=== PATIENT | male | born 1985 | race Caucasian/White ===

== ENCOUNTER 2017-05-29 11:27 | Emergency (ER) | payer MEDICAID ==
[2017-05-29 11:40] VITALS: TEMP 97.5
--- NOTE | 2017-05-29 14:48 | EDPHY ---
H & P Smoking Status: Current some day smoker Time Seen by Provider: 05/29/17 14:07 HPI/ROS: CHIEF COMPLAINT: Vomiting, diarrhea HISTORY OF PRESENT ILLNESS: 31-year-old male presents emergency department with multiple episodes of vomiting and diarrhea that began earlier this morning. No fevers or chills. No blood in his stool. No recent travel. No chest pain or difficulty breathing. No neck or back pain. Patient also tells me that he has a history of bipolar and has been prescribed lithium. He last had his levels checked a few months ago. He has not had any lithium toxicity in the past. He states that he used to live over sees in [place] and [place] and has been having difficulty the getting a job. He has felt depressed. He is not suicidal homicidal. He does have a psychiatrist as well as a therapist. REVIEW OF SYSTEMS: Constitutional: No fever, no chills. Eyes: No double or blurry vision. ENT: No sore throat. Respiratory: No cough, no shortness of breath. Cardiac: No chest pain. Gastrointestinal: Vomiting, diarrhea as above. No abdominal pain. Genitourinary: No dysuria. Musculoskeletal: No neck or back pain. Skin: No rashes. Neurological: No headache. (Lou Donovan) Past Medical/Surgical History: Bipolar (Lou Donovan) Social History: Single, unemployed (Lou Donovan) Physical Exam: General Appearance: Alert, no distress. Vital signs are stable. Eyes: Pupils equal and round. Extraocular motions are all intact. ENT: Mouth: Mucous membranes moist. Respiratory: No wheezing, rhonchi, or rales, lungs are clear to auscultation. Cardiovascular: Regular rate and rhythm. Gastrointestinal: Abdomen is soft and nontender, no masses, no rebound or guarding, bowel sounds normal. Neurological: Alert and oriented x 3, cranial nerves II through XII grossly intact Skin: Warm and dry, no rashes. Musculoskeletal: Nontender to palpate along the cervical, thoracic or lumbar spine. Neck is supple. Extremities: Full range of motion and no peripheral edema. Psychiatric: Patient is oriented X 3, there is no agitation. (Lou Donovan) Constitutional: Initial Vital Signs Temperature (C) 36.4 C 05/29/17 11:37 Heart Rate 76 05/29/17 11:37 Respiratory Rate 16 05/29/17 11:37 Blood Pressure 115/72 05/29/17 11:37 O2 Sat (%) 98 05/29/17 11:37 O2 Delivery Mode Room Air Allergies/Adverse Reactions: No Known Allergies Allergy (Verified 05/29/17 11:36) Home Medications: Medication Instructions Recorded Mercer Carbonate [Mercer 300 mg PO BID #60 cap 05/08/16 Carbonate Cap 300 mg (*)] Medical Decision Making ED Course/Re-evaluation: 31-year-old male presents to the emergency department with multiple episodes of vomiting and diarrhea which have now resolved. Patient has a normal physical examination. The patient has a history of bipolar and has been taking lithium as prescribed. He has not seen his psychiatrist or therapist in a few weeks. I recommended close follow-up with them. I offered mental health evaluation, however the patient declined. He states that he does feel depressed and not motivated, however he does not feel suicidal or homicidal. Denies auditory or visual hallucinations. He does have a primary care provider and has been the following up with her regarding his depression. It is been recommended that he follow up with the psychiatrist. (Lou Donovan) I did not see this patient while he was in the emergency department. However his care was discussed with the PA while the patient was in the department. I agree with treatment plan and management. IM the secondary supervising physician (Kip Saenz) Differential Diagnosis: Including but not limited to gastroenteritis, infectious diarrhea, anemia (Lou Donovan) Departure - Departure Disposition: Home, Routine, Self-Care Clinical Impression: Gastroenteritis Depression Qualifiers: Depression Type: unspecified Qualified Code(s): F32.9 - Major depressive disorder, single episode, unspecified Condition: Good Instructions: Depression (ED), Gastroenteritis (ED) Additional Instructions: Clear liquids and then advance diet as tolerated. Referrals: Jenny Stoner MD [Primary Care Provider] - As per Instructions [facility],. [Clinic] - As per Instructions
[2017-05-29 14:54] VITALS: BP 132/76; PULSE 73; RESP 18; O2SAT 95
== END 2017-05-29 14:53 | disposition home or self-care (01) ==
DX: K52.9 Noninfective gastroenteritis and colitis, unspecified (principal); F32.9 Major depressive disorder, single episode, unspecified

== ENCOUNTER 2018-04-10 00:33 | Emergency (ER) | payer SELFPAY ==
--- NOTE | 2018-04-10 01:05 | EDPHY ---
H & P Stated Complaint: feels "blunted" Time Seen by Provider: 04/10/18 01:05 HPI/ROS: HPI CHIEF COMPLAINT: "I feel blunted" HISTORY OF PRESENT ILLNESS: 32-year-old male, he has a history of bipolar disorder, does not take any medications, also he is homeless living out of his car, presents emergency room stating he feels blunted. He reports to me that he has felt more isolated, and feels fatigued. He has not been ill. He denies suicidal thoughts or homicidal thoughts he denies wanting to hurt himself or anybody else. He states that he has been living in his car more often recently and is somewhat tired of doing this as he states he always has to be alert and kept alert looking for threats. He denies visual or auditory hallucinations. Patient's main complaint is that he feels fatigued. He went to get his vital signs checked here. Additionally he was requesting basic blood work. He has no focal psychiatric complaint. He denies SI HI or feeling psychotic. He does endorse fatigue. He denies feeling really depressed. Past Medical History: Bipolar disorder, not on any medication Past Surgical History: No recent surgery Social History: smokes marijuana occasionally, denies other illicit drugs or alcohol. Family History: Noncontributory ROS REVIEW OF SYSTEMS: 10 Systems were reviewed and negative with the exception of the elements mentioned in the history of present illness. Exam Constitutional Non toxic, vss, triage nursing summary reviewed, vital signs reviewed, awake/alert. Eyes normal conjunctivae and sclera, EOMI, PERRLA. HENT normal inspection, atraumatic, moist mucus membranes, no epistaxis, neck supple/ no meningismus, no raccoon eyes. Respiratory clear to auscultation bilaterally, normal breath sounds, no respiratory distress, no wheezing. Cardiovascular rate normal, regular rhythm, no murmur, no edema, distal pulses normal. Gastrointestinal soft, non-tender, no rebound, no guarding, normal bowel sounds, no distension, no pulsatile mass. Genitourinary no CVA tenderness. Musculoskeletal no midline vertebral tenderness, full range of motion, no calf swelling, no tenderness of extremities, no meningismus, good pulses, neurovascularly intact. Skin pink, warm, & dry, no rash, skin atraumatic. Neurologic awake, alert and oriented x 3, AAOx3, moves all 4 extremities equally, motor intact, sensory intact, CN II-XII intact, normal cerebellar, normal vision, normal speech. Psychiatric normal mood/affect. Heme/Lymph/Immune no lymphadenopathy. Differential Diagnosis: Includes but is not limited to in a particular order: Underlying bipolar disorder, depression, electrolyte disturbance, fatigue, underlying depression causing him to feel fatigued. Medical Decision Making: Plan for this patient does not really have any specific complaints other than feeling fatigued. He appears well nontoxic no acute distress vital signs are stable. The patient did come to the emergency room requesting to have his vital signs checked. We have checked them and they are normal. He denies feeling psychotic or wanting to hurt himself or anybody else. He does report feeling fatigued. He does have follow-up care at [facility]. Plan will be for checking his vitals which we normally do anyway in the emergency room, check basic blood work. Fall this is normal and he feels well otherwise I think he can be safely discharged from the emergency room he does not appear psychotic. Re-evaluation: 0205: Patient's blood work is unremarkable. Patient's vital signs are stable. He has been sleeping comfortably here in the emergency room. Re-examination he has no complaints. Blood work reviewed unremarkable. Safe for discharge. Mental health resources provided. Source: Patient - Personal History Current Tetanus/Diphtheria Vaccine: Unsure Current Tetanus Diphtheria and Acellular Pertussis (TDAP): Unsure - Medical/Surgical History Hx Asthma: No Hx Chronic Respiratory Disease: No Hx Diabetes: No Hx Cardiac Disease: No Hx Renal Disease: No Hx Cirrhosis: No Hx Alcoholism: No Hx HIV/AIDS: No Hx Splenectomy or Spleen Trauma: No Other PMH: bipolar/anxiety - Social History Smoking Status: Current some day smoker Constitutional: Initial Vital Signs Temperature (C) 36.6 C 04/10/18 01:00 Heart Rate 60 04/10/18 01:00 Respiratory Rate 16 04/10/18 01:00 Blood Pressure 148/82 H 04/10/18 01:00 O2 Sat (%) 98 04/10/18 01:00 O2 Delivery Mode Room Air Allergies/Adverse Reactions: No Known Allergies Allergy (Verified 04/10/18 01:00) Home Medications: Medication Instructions Recorded NK [No Known Home Meds] 04/10/18 Medical Decision Making - Data Points Laboratory Results: Laboratory Results 04/10/18 01:27 04/10/18 01:27 04/10/18 04/10/18 01:27 01:27 WBC 5.21 10^3/uL 10^3/uL (3.80-9.50) RBC 5.03 10^6/uL 10^6/uL (4.40-6.38) Hgb 15.9 g/dL g/dL (13.7-17.5) Hct 45.7 % % (40.0-51.0) MCV 90.9 fL fL (81.5-99.8) MCH 31.6 pg pg (27.9-34.1) MCHC 34.8 g/dL g/dL (32.4-36.7) RDW 12.2 % % (11.5-15.2) Plt Count 247 10^3/uL 10^3/uL (150-400) MPV 11.3 fL fL (8.7-11.7) Neut % (Auto) 54.0 % % (39.3-74.2) Lymph % (Auto) 34.5 % % (15.0-45.0) Terry % (Auto) 8.4 % % (4.5-13.0) Eos % (Auto) 2.3 % % (0.6-7.6) Baso % (Auto) 0.6 % % (0.3-1.7) Nucleat RBC Rel Count 0.0 % % (0.0-0.2) Absolute Neuts (auto) 2.81 10^3/uL 10^3/uL (1.70-6.50) Absolute Lymphs (auto) 1.80 10^3/uL 10^3/uL (1.00-3.00) Absolute Monos (auto) 0.44 10^3/uL 10^3/uL (0.30-0.80) Absolute Eos (auto) 0.12 10^3/uL 10^3/uL (0.03-0.40) Absolute Basos (auto) 0.03 10^3/uL 10^3/uL (0.02-0.10) Absolute Nucleated RBC 0.00 10^3/uL 10^3/uL (0-0.01) Immature Gran % 0.2 % % (0.0-1.1) Immature Gran # 0.01 10^3/uL 10^3/uL (0.00-0.10) Sodium 139 mEq/L mEq/L (135-145) Potassium 4.0 mEq/L mEq/L (3.3-5.0) Chloride 103 mEq/L mEq/L (97-110) Carbon Dioxide 29 mEq/l mEq/l (22-31) Anion Gap 7 mEq/L mEq/L (6-14) BUN 9 mg/dL mg/dL (7-23) Creatinine 0.9 mg/dL mg/dL (0.7-1.3) Estimated GFR > 60 Glucose 89 mg/dL mg/dL (70-100) Calcium 10.0 mg/dL mg/dL (8.5-10.4) Departure - Departure Disposition: Home, Routine, Self-Care Clinical Impression: Fatigue Qualifiers: Fatigue type: unspecified Qualified Code(s): R53.83 - Other fatigue Condition: Good Instructions: Fatigue (ED) Referrals: Jenny Stoner MD [Primary Care Provider] - As per Instructions [facility],. [Clinic] - As per Instructions
[2018-04-10 01:35] LABS: PLATELET COUNT 247 10^3/uL (150-400)
[2018-04-10 02:22] VITALS: BP 118/65
== END 2018-04-10 02:20 | disposition home or self-care (01) ==
DX: R53.83 Other fatigue (principal); F31.9 Bipolar disorder, unspecified; Z59.0 Homelessness; F17.200 Nicotine dependence, unspecified, uncomplicated

== ENCOUNTER 2018-04-19 12:47 | Emergency (ER) | payer SELFPAY ==
--- NOTE | 2018-04-19 13:13 | EDPHY ---
H & P Source: Patient Exam Limitations: No limitations - Medical/Surgical History Hx Asthma: No Hx Chronic Respiratory Disease: No Hx Diabetes: No Hx Cardiac Disease: No Hx Renal Disease: No Hx Cirrhosis: No Hx Alcoholism: No Hx HIV/AIDS: No Hx Splenectomy or Spleen Trauma: No Other PMH: bipolar/anxiety - Social History Smoking Status: Current some day smoker Time Seen by Provider: 04/19/18 13:13 HPI/ROS: CHIEF COMPLAINT: Brought in by family over psychiatric concerns HISTORY OF PRESENT ILLNESS: The patient is a 32-year-old homeless male with history of bipolar mood disorder currently off medications who is brought in by his brother. His brother is concerned about some paranoid delusions that the patient is experiencing. The patient is minimizing those statements to his brother currently. The patient does report he smokes marijuana occasionally but does not have problems with drugs or alcohol dependence. The patient reports he had been on lithium up until about 6 months ago. He stop taking the medications secondary to dysphoria. The patient has not had any regular follow- up with [facility]. He denies any acute medical complaints or medical illness. REVIEW OF SYSTEMS: A comprehensive 10 point review of systems is otherwise negative aside from elements mentioned in the history of present illness. (Liam Carter) - Physical Exam Exam: General Appearance: Alert, no distress Eyes: Pupils equal and round no pallor or injection ENT, Mouth: Mucous membranes moist Respiratory: There are no retractions, lungs are clear to auscultation Cardiovascular: Regular rate and rhythm Gastrointestinal: Abdomen is soft and nontender, no masses, bowel sounds normal Neurological: A&O, normal motor function, normal sensory exam, normal cranial nerves Skin: Warm and dry, no rashes Musculoskeletal: Neck is supple nontender Extremities: symmetrical, full range of motion Psychiatric: Patient is oriented X 3, there is no agitation, does endorse some paranoid delusion, denies suicidal or homicidal ideation (Liam Carter) Constitutional: Initial Vital Signs Temperature (C) 36.8 C 04/19/18 12:56 Heart Rate 70 04/19/18 12:56 Respiratory Rate 16 04/19/18 12:56 Blood Pressure 112/84 H 04/19/18 12:56 O2 Sat (%) 98 04/19/18 12:56 O2 Delivery Mode Room Air Allergies/Adverse Reactions: No Known Allergies Allergy (Verified 04/10/18 01:00) Home Medications: Medication Instructions Recorded NK [No Known Home Meds] 04/10/18 Medical Decision Making ED Course/Re-evaluation: The patient presents to the ED for consideration of a psychiatric admission secondary to his bipolar mood disorder. The patient has been medically cleared for psychiatric evaluation at 2:20 p.m.. The patient is currently on a mental health detain or as he is not overtly suicidal or homicidal. The patient has been cooperative and has declined medications in the emergency department. The patient has been turned over to Dr. Wang at shift change pending disposition. (Liam Carter) Differential Diagnosis: Differential diagnosis considered includes psychosis, bipolar mood disorder, suicidal ideation, homicidal ideation (Liam Carter) Other Provider: I assumed care of this patient from Dr. Carter at 3:00 p.m.. He underwent a mental health evaluation. It was felt that he is appropriate for inpatient treatment. He was placed on an M1 hold. He is being started on oral Zyprexa. He agrees to take this medication. Care transferred to Dr. Nair at 11:30 p.m.. (Kristin Wang) - Data Points Laboratory Results: Laboratory Results 04/19/18 13:38 04/19/18 13:38 Medications Given: Discontinued Medications Olanzapine (Olanzapine) 5 mg PO ONCE ONE Stop: 04/19/18 19:40 Last Admin: 04/19/18 20:05 Dose: 5 mg Olanzapine (Olanzapine) 5 mg PO ONCE ONE Stop: 04/19/18 22:13 Last Admin: 04/19/18 22:34 Dose: 5 mg Departure - Departure Disposition: Other Psych, Not [facility] Clinical Impression: Bipolar mood disorder Referrals: Jenny Stoner MD [Primary Care Provider] - As per Instructions
[2018-04-19 13:44] LABS: PLATELET COUNT 292 10^3/uL (150-400)
[2018-04-19] MEDS ORDERED: OLANZapine 5 MG TAB PO ONE ×2 (19:39→22:12)
[2018-04-19] MEDS ORDERED: OLANZapine 5 MG TAB ONE (20:04)
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
--- NOTE | 2018-04-19 22:32 | ASMTTCLDSP ---
TLC Discharge Disposition Disposition: Answers: Transfer Disposition Notes: Notes: In consultation with [facility] ED physician,Alea Wang MD and on-call psychiatrist, Neil Golden MD, both concurred that pt appears to meet 27-65 criteria requiring psychiatric hospitalization as pt appears to be gravely disabled due to a mental illness condition. Was patient given the Answers: Not applicable Inpatient Behavioral Health Prohibited Belongings List while in the ED? Hold initiated by: Answers: ED Physician For Transfers, Accepting [facility] Facility: For Transfers, [facility] Psych[facility]rist: For Transfers, Reason No beds Patient is Being Transferred: Date Signed: 04/19/2018 10:31 PM Electronically Signed By:Ra Koroma
[2018-04-20 00:46] VITALS: BP 112/77
== END 2018-04-20 00:43 ==
DX: F31.9 Bipolar disorder, unspecified (principal); Z59.0 Homelessness; T43.506A Underdosing of unspecified antipsychotics and neuroleptics, initial encounter
CPT/HCPCS: 80305; G0480

== ENCOUNTER 2018-09-10 15:39 | Inpatient (IN) | payer MEDICAID, OTHER ==
[2018-09-10] MEDS ORDERED: LORazepam 1 MG TAB PO ONE (18:53)
[2018-09-10] MEDS ORDERED: OLANZapine DISINTEGR 5 MG TAB PO ONE (18:53)
--- NOTE | 2018-09-10 19:03 | EDPHY ---
H & P Stated Complaint: Needs psyche eval. Source: Patient, Family - Personal History Current Tetanus Diphtheria and Acellular Pertussis (TDAP): Unsure - Medical/Surgical History Hx Asthma: No Hx Chronic Respiratory Disease: No Hx Diabetes: No Hx Cardiac Disease: No Hx Renal Disease: No Hx Cirrhosis: No Hx Alcoholism: No Hx HIV/AIDS: No Hx Splenectomy or Spleen Trauma: No Other PMH: bipolar/anxiety - Family History Significant Family History: No pertinent family hx - Social History Smoking Status: Current some day smoker Alcohol Use: None Time Seen by Provider: 09/10/18 18:43 HPI/ROS: CHIEF COMPLAINT: Bipolar HISTORY OF PRESENT ILLNESS: The patient is a 33-year-old man whose family brings him in for psychiatric evaluation. He has a history of bipolar disorder and was admitted in April to [facility]. He is supposed to be taking lithium and Risperdal but family does not think he is. The patient says that he has. Brother and dad report that he has been pacing around his apartment for the last several weeks and not going to work. He has not been bathing or eating. He is getting kicked out of his apartment on Sunday. Today the patient told his brother that he was thinking about suicide and went to the roommates room looking for a gun. He found ammunition but no gun. No recent trauma or fevers. Patient and mother deny recent drug or alcohol use. Dad came from [employer] today to help the patient find a new apartment but patient was not answering the phone or coming out of his home. Severity: Severe Modifying factors: None REVIEW OF SYSTEMS: Constitutional: denies: chills, fever, recent illness, recent injury EENTM: denies: blurred vision, double vision, nose congestion Respiratory: denies: cough, shortness of breath Cardiac: denies: chest pain, irregular heart rate, lightheadedness, palpitations Gastrointestinal/Abdominal: denies: abdominal pain, diarrhea, nausea, vomiting, blood streaked stools Genitourinary: denies: dysuria, frequency, hematuria, pain Musculoskeletal: denies: joint pain, muscle pain Skin: denies: lesions, rash, jaundice, bruising Neurological: See HPI denies: headache, numbness, paresthesia, tingling, dizziness, weakness Hematologic/Lymphatic: denies: blood clots, easy bleeding, easy bruising Immunologic/allergic: denies: HIV/AIDS, transplant 10 systems reviewed and negative except as noted EXAM: GENERAL: Foul-smelling and slightly dirty pacing in the hallway HEAD: Atraumatic, normocephalic. EYES: Pupils equal round and reactive to light, extraocular movements intact, sclera anicteric, conjunctiva are normal. ENT: TMs normal, nares patent, oropharynx clear without exudates. Moist mucous membranes. NECK: Normal range of motion, supple without lymphadenopathy or JVD. LUNGS: Breath sounds clear to auscultation bilaterally and equal. No wheezes rales or rhonchi. HEART: Regular rate and rhythm without murmurs, rubs or gallops. ABDOMEN: Soft, nontender, normoactive bowel sounds. No guarding, no rebound. No masses appreciated. BACK: No CVA tenderness, no spinal tenderness, step-offs or deformities EXTREMITIES: Normal range of motion, no pitting or edema. No clubbing or cyanosis. NEUROLOGICAL: Cranial nerves II through XII grossly intact. Normal speech, normal gait. 5/5 strength, normal movement in all extremities, normal sensation , normal reflexes PSYCH: Decreased affect, pacing, composed, foul-smelling. Denies suicidal thoughts to me. SKIN: Warm, dry, normal turgor, no visible rashes or lesions. (Prosper Smith) Constitutional: Initial Vital Signs Temperature (C) 36.6 C 09/10/18 17:56 Heart Rate 51 L 09/10/18 17:56 Respiratory Rate 18 09/10/18 17:56 Blood Pressure 128/89 H 09/10/18 17:56 O2 Sat (%) 97 09/10/18 17:56 O2 Delivery Mode Room Air O2 (L/minute) 95 Allergies/Adverse Reactions: No Known Allergies Allergy (Verified 04/10/18 01:00) Home Medications: Medication Instructions Recorded [place] Carbonate [[place] 600 mg PO DAILY 09/10/18 Carbonate Tab 300 mg (*)] risperiDONE [Risperdal 1mg (*)] 2 mg PO DAILY 09/10/18 [place] Carbonate [[place] 300 mg PO HS 09/11/18 Carbonate Tab 300 mg (*)] Multivitamins [Multivitamin (*)] 1 each PO DAILY 09/11/18 Medical Decision Making ED Course/Re-evaluation: Patient's care was signed out to me at 9:[address] Smith. Patient has remained stable. He has had a mental health evaluation. They want to admit him and he had been accepted at [address] [place] [address]. Apparently there are some insurance concerns or problems and so he will remain in the ED overnight and be Re- evaluated in insurance issues workout tomorrow morning. Care to Dr. Nair at 11:30 p.m. (Kip Saenz) 0700AM: No acute events overnight. Signed over to Dr. Mora 7am. Pending placement. (Usman Nair) 9:00 p.m. The patient at is medically cleared and is waiting to be evaluated by Mental Health. Care transferred to Dr. Kip Saenz. (Prosper Smith) Differential Diagnosis: Partial list of the Differential diagnosis considered include but were not limited to; bipolar, schizoaffective, suicidal and although unlikely based on the history and physical exam, I also considered substance abuse, head injury, infection. (Prosper Smith) Other Provider: 0910: Patient has been accepted to [address] [place] [address]. (Ra Mora) - Data Points Laboratory Results: Laboratory Results 09/10/18 19:15 09/10/18 19:15 Medications Given: Discontinued Medications Lorazepam (Ativan) 1 mg PO EDNOW ONE Stop: 09/10/18 18:54 Last Admin: 09/10/18 19:03 Dose: 1 mg Olanzapine (Zyprexa Zydis) 5 mg PO EDNOW ONE Stop: 09/10/18 18:54 Last Admin: 09/10/18 19:03 Dose: 5 mg Departure - Departure Disposition: [facility] IP Clinical Impression: Bipolar 1 disorder Condition: Good
[2018-09-10 19:28] LABS: PLATELET COUNT 286 10^3/uL (150-400)
--- NOTE | 2018-09-10 22:33 | ASMTTLCEVL ---
TLC Evaluation - Basic Information Evaluation Start Date and 09/10/2018 09:00 PM Time Hospital Status Answers: M1 Hold 72-hr M1 Hold Start Date 09/10/2018 07:00 PM and Time Patient statement Notes: Too many. Narrative Notes: Pt is a 33 year old male with an hx of bipolar disorder presented voluntarily with the encouragement of his brother and father. Brother and dad report that pt has been pacing around his apartment for the past several weeks, has not been bathing or eating or sleeping well. Today, pt.s father flew in from [place] to help pt look for a new apartment. They agreed to meet at his fathers hotel in [place]. Dad said at 10am, pt still hadnt shown up but text him and stated he is going to be late. 30 minutes later, pt.s brother, received a call from pt saying he went through his landlords stuff looking for a gun. Pt only found ammo, no gun. Dad stated pt has had some recent stressors the last couple of weeks such as needing to find a new place to live, and financial stress. Dad and brother report that pt was dx with bipolar disorder 5 years ago and since then, pt has had a lot of difficulty managing on his own. Brother stated a few months ago, pt [place] a [place] Brother stated he confiscated the gun from him. Both dad and brother report in the past, pt has gone [place] the mountains, all day and night. He will run out of gas 10 times in a day, then just go hitchhike, get some gas and keep driving. Dad and brother state pt is weary of western medicine and has some paranoid thoughts as well has pressured speech earlier today. Pt had minimal participation in the evaluation due to being given 5mg of Zyprexa and 1mg Ativan. Pt did say he felt overwhelmed lately and has some stressors. Diagnosis History Notes: Bipolar I Disorder, Mixed Episode Prior suicide attempts Notes: None reported Prior hospitalizations Notes: [facility] 05/[facility]/16. Pt was most recently hospitalized at [facility] in April. Treatment Responses Notes: The pt's psychiatrist recommended a residential treatment for the PT in August 2017 [facility], in [facility] but the PT was acting too acute climbing out of windows to smoke and other bizarre bx. Pt was previously stabilized at [facility] 2 years ago with [place] and per Pt's brother it was a night and day difference in behavior, he was clear coherent, sharp, setup a job and found a place to live. Shortly after he became non med compliant because he didn't like the way lithium made him feel and he didn't follow through on the job or housing. . The pt's psychiatrist recommended a residential treatment for the PT in August 2017 [facility] in [facility] but the PT was acting too acute climbing out of windows to smoke and other bizarre bx. Pt was previously stabilized at [facility] 2 years ago with [place] and per Pt's brother it was a night and day difference in behavior, he was clear coherent, sharp, setup a job and found a place to live. Shortly after he became non med compliant because he didn't like the way lithium made him feel and he didn't follow through on the job or housing. History of violence Notes: Denied any HI Therapist: None Psychiatrist: Ra Pool MD- has not seen him Medications (name, dosage, route, freq uency) Notes: [place] Risperdal Allergies/Reaction Notes: Nka Sleep Notes: Pt's brother reports the pt has frequent insomnia Appetite Notes: Poor Medical/Surgical history Notes: He reports he has had shoulder surgery twice due to dislocations of his shoulder. He reported some concussions while playing football and lacrosse. Substance use history (frequency, intensity, his tory, duration) Notes: Unable to obtain hx from pt but brother stated he believes pt drinks alcohol and his father stated he believes he has used marijuana. Pts utox was negative for all substances and bal was.0. Per previous [facility] records, He reports that he started smoking cigarettes at age 17. The last time was when he was at college. He smoked infrequently. He started using marijuana when he was 16 or 17. He was regularly using in high school and the beginning of college. The last time he used was a couple times this summer. He started using powdered cocaine when he was 18 or 19. He reports using it less than 3 or 4 times. The last was at age 23. He reports that he used Adderall a few times since starting college. He also used OxyContin when he was age 19. He was placed on Percocet due to a shoulder dislocation. He states he abused it a few times. He used mushrooms 5-8 times from age 18 to this past summer. He reports he used alcohol at ages 16 and 17. He drank heavily in high school and college, but he has not used since 2011. Family composition Notes: Pt is close to his family, pts family is supportive, and parents are together. Pt has a 30 yo brother who lives in [place]. Need for family Answers: Yes participation in patient's care Family psychiatric/substance abuse history Notes: Pt denies any previous psychiatric history but does report depression on his mothers side of the family. Developmental history Notes: No add, adhd or other learn disorders reported; No TBI's, LOC, or concussions reported Abuse concerns Answers: None Marital status/children Notes: Unmarried, no children Living situation Notes: Unemployed. Sexual history/orientation Notes: Pt did not report his sexual hx/orientation. Peer support/family strengths Notes: Pt is close to his family, pts family is supportive, pt has a 30 yo brother who lives in [place]. Education level/history Notes: Pt has a BA in business admin. 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 Father stated he has not been able to work for the past 4 years. Notes: None reported. Legal Notes: Pt denied any legal issues. Latter Day/Spiritual Notes: Pt reports he is spiritual and believes in god and infinite intelligence in the universe. Leisure Notes: movies, books and travel. Collateral Notes: Brother- Benigno Father Patient's strengths Answers: Athletic (Please select at least TWO strengths): Intelligent TLC Evaluation - Mental Status Exam Appearance: Answers: Unclean Eye Contact: Answers: Absent Mood: Answers: Euthymic Affect: Answers: Subdued Behavior: Answers: Sedated Sleeping Speech: Answers: Unclear Manic Signs/Symptoms Answers: Distractibility Impulsivity Pressured Speech Racing Thoughts Delusions: Answers: Paranoid Ideation Pt reported to have Answers: Yes suicidal/self-injuring ideation/behavior? Pt reported to be making Answers: Yes suicidal/self-injuring threats? Pt reported to have Answers: No aggression/assault ideation/behavior? Pt reported to be making Answers: No aggression/assault threats? Pt exhibits inability to Answers: No care for self/grave disability? Ideation/behavior is Answers: No chronic? Patient has a specific Answers: No plan? Pt has access to means to Answers: No execute the plan? Ideation involves Answers: No serious/lethal intent? History of Answers: No suicidal/self-injuring ideation, behavior, or threats? History of Answers: No aggressive/assaultive ideation, behavior, or threats? History of serious Answers: No physical harm to self/others while in treatment setting? TLC Evaluation - Suicide/Homicide Risk Suicide Risk Factors: Answers: Bipolar Disorder Impulsivity Homicide/violence risk Answers: None factors: Current Suicide Ideation Unable to assess current level of SI/frequency. Frequency: Current Suicidal Ideation Answers: No in the Past 48 Hours? Suicide Internal Answers: Other Notes: Unable to assess Protective Factors: Suicide External Answers: Social Support Protective Factors: Ranking of patient's Answers: Moderate suicidal risk: Ranking of patient's Answers: Low homicidal risk: TLC Evaluation - Wrap-up BDI Total Score: unable BSS Total Score: unable AXIS I Diagnosis (include DSM-V and ICD-10 codes), must also be entered in [employer], which is the source of truth. Notes: Bipolar I Disorder, severe 296.43 (F31.13) Evaluation End Date and 09/10/2018 10:30 PM Time (HH:MM): Date Signed: 09/10/2018 10:32 PM Electronically Signed By:Angelica Herrera
--- NOTE | 2018-09-10 22:36 | ASMTTCLDSP ---
TLC Discharge Disposition Disposition: Answers: Admit Discharge Concerns/Recommendations: Notes: In consultation with [facility] ED physician, Prosper Smith MD and on-call psychiatrist, Aruna Park MD, both concurred that pt appears to meet 27-65 criteria requiring psychiatric hospitalization as pt appears to be at risk of harm to self due to a mental illness condition. Pt was read the Patient Rights and Responsibilities Statement on (09/10/2018/23:00), original placed on chart, and was given photocopy of Rights. Pt unable to sign the Patient Rights. Pt was given the 3[facility] prohibited belongings list while in the ED. Was patient given the Answers: Yes Inpatient Behavioral Health Prohibited Belongings List while in the ED? For inpatient Aruna Park MD admission, the following psychiatrist agreed to accept patient for admission to Behavioral Health ([facility]): Date Signed: 09/10/2018 10:35 PM Electronically Signed By:Angelica Herrera
[2018-09-11] MEDS ORDERED: ALBUTEROL 60 PUFFS/8 GM MDI IH PRN ×2 (10:19→12:35)
--- NOTE | 2018-09-11 10:19 | PDCONSULT ---
Environmental Lead Note: Chief complaint Suicidal ideation HPI Patient is a 33-year-old male with past medical history of bipolar on lithium and Risperdal who was brought in for evaluation by his family for concerns that the patient had recently developed some suicidal ideation. He says for the past few weeks he has been pacing around his trailer, losing track of time and then in the last few days he says that his outlook on life has become particularly bleak. He said that he thought about ending his life although he did not come up with a definite plan to do so. Per the ER report he did look through his roommates belongings and found emanation but no gun and he did say that he thought that if he had found a gun he might have followed through at that time. Otherwise he denied any fevers chills nausea vomiting cough or other complaints. Past medical history Bipolar Past surgical history Shoulder surgery Social history Smokes at least a pack a day of tobacco Rarely uses alcohol rarely uses CBD Family history Unknown Allergies No known drug allergies Medications [place] unknown dose Risperdal Objective Vital signs Blood pressure 104/83, heart rate 87, saturating 94% on room air, breathing 18 times a minute, temperature 36.7 degrees C Examination General- a well-appearing white male in no acute distress HEENT- atraumatic normocephalic, pupils equal round reactive to light and accommodation, mucosa mucous membranes moist pink and acyanotic Lungs- expiratory wheezes bilaterally throughout Cardiovascular- regular rhythm and rate no murmurs rubs gallops normal S1-S2 Abdomen- soft nontender nondistended in all 4 quadrants, no organomegaly, no guarding or rebound Extremities- no clubbing cyanosis edema or calf pain Neuro- cranial turn nerves 2 through 12 grossly intact no focal neurologic deficits. Alert and oriented x3 Psych- affect appropriate Skin- no rashes lesions or ecchymosis Assessment plan 33-year-old male with concerns for suicidal ideation SI- on hold awaiting placement at Behavioral Health Bipolar- continue lithium and Risperdal per Psychiatry. Check lithium level Possible asthma- no known history of asthma, no oxygen requirement currently, does have expiratory wheezes which he attributes to heavy smoking over the last 3-4 weeks. Will order albuterol inhaler. PPX- ambulate TID Fluids- None Lytes- WNL Nutrition- regular Dispo- medically cleared for transfer to .
[2018-09-11] MEDS ORDERED: ACETAMINOPHEN 325 MG TAB PO PRN (12:39)
[2018-09-11] MEDS ORDERED: LORazepam 0.5 MG TAB PO PRN ×2 (12:39→12:43)
[2018-09-11] MEDS ORDERED: MAG HYDROX/AL HYDROX/SIMETH 30 ML UDCUP PO PRN (12:39)
[2018-09-11] MEDS ORDERED: MAGNESIUM HYDROXIDE 30 ML UDCUP PO PRN (12:39)
[2018-09-11] MEDS ORDERED: OLANZapine DISINTEGR 10 MG TAB PO PRN (12:39)
--- NOTE | 2018-09-11 13:40 | ASMTBHMTP ---
Master Treatment Plan Master Treatment Plan Answers: Mood Instability with for: Psychosis Date: 09/11/2018 Diagnosis on Admission: Bipolar I Disorder, severe 296.43 Expected length of stay: 3-5 Days Reason for admission: Notes: Pt is a 33 year old male with an hx of bipolar disorder presented voluntarily with the encouragement of his brother and father. Brother and dad report that pt has been pacing around his apartment for the past several weeks, has not been bathing or eating or sleeping well. Today, pt.s father flew in from [place] to help pt look for a new apartment. They agreed to meet at his fathers hotel in [place]. Dad said at 10am, pt still hadnt shown up but text him and stated he is going to be late. 30 minutes later, pt.s brother, received a call from pt saying he went through his landlords stuff looking for a gun. Pt only found ammo, no gun. Dad stated pt has had some recent stressors the last couple of weeks such as needing to find a new place to live, and financial stress. Dad and brother report that pt was dx with bipolar disorder 5 years ago and since then, pt has had a lot of difficulty managing on his own. Brother stated a few months ago, pt [place] a [place]. Brother stated he confiscated the gun from him. Both dad and brother report in the past, [place] has [place], all day and night. He will run out of gas 10 times in a day, then just go hitchhike, get some gas and keep driving. Dad and brother state pt is weary of western medicine and has some paranoid thoughts as well has pressured speech earlier today. Pt had minimal participation in the evaluation due to being given 5mg of Zyprexa and 1mg Ativan. Pt did say he felt overwhelmed lately and has some stressors. Patient's stated presenting problems: Notes: Pt. stated he was "living in a shared house" and was pacing around a lot. Pt. reports having a "strange episode" and having the "potential for self harm". Patient's goals for treatment: Notes: Pt. stated he would "love to get good sleep" and to "get healthier". Patient's strengths: Notes: Pt. stated "don't have that many", adding he is "just trying to survive". Identify supports outside of hospital: Notes: Pt. stated "just family". Pt. stated he is not currently connected with any mental health providers. Discharge criteria: Notes: Patient will demonstrate more stable mood by discharge. Initial disposition plan/considerations: Notes: Pt. stated his brother and father are working on the pt's discharge plan. Master Treatment Plan Required Signatures Psychiatrist signature: Answers: Psychiatrist: RN on-shift signature: Answers: RN: Patient signature: Answers: Patient: Date Signed: 09/11/2018 01:40 PM Electronically Signed By:Felicia Cornell
--- NOTE | 2018-09-11 13:48 | ASMTCMCOM ---
CM Note CM Note Notes: CC met with pt. to complete MTP. Pt. stated this in his third hospitalization in " a couple years", reporting he was at [facility] 2 years ago, and [facility] more recently. Pt. stated he does not currently have mental health providers. Pt. denies any current legal issues. Pt. reports drinking alcohol "not really, rarely". Pt. stated "no" when asked if he smokes THC, pt. then stated he "rarely" uses THC. Pt. denied all other substance use. Pt. expressed interested in quitting smoking. CC will assist pt. with contacting [phone]. Pt. signed ROIs for his father, Jae ([phone]), and his brother Chad ([phone]) Date Signed: 09/11/2018 01:47 PM Electronically Signed By:Felicia Cornell
--- NOTE | 2018-09-11 14:59 | ASMTBHFAM ---
Notes Note: Notes: CC spoke with OLVIN Jae ([phone]) FOC stated he is in "constant communication" with the pt. FOC stated he lives in [place], but will be in the area for as long as he is needed. [facility] stated he is working on securing pt. an apartment in [place], with the lease to begin on 09/16/18. [facility] stated pt's lease for his current place will be up 09/15/18. [facility] stated pt. is "all about not believing in Western medicine". [facility] stated pt. stated he was taking his medication, but the family did not believe the pt. [facility] stated pt. "hasn't made it to work in a long time", adding when pt is healthy and medicated he is "perfectly capable of working". [facility] stated pt. was on this unit 2 years ago, for 3 days, with Dr. Ra Pool and FOC stated it was "like a miracle". [facility] stated pt. was admitted to [facility] in April of 2018 for 10 days, adding the pt. "didn't like it". [facility] asked how long pt. will be in the hospital, adding "Eber needs to be where you are". [facility] stated he wants to be involved with the pt's care. [facility] requested a family meeting. [facility] stated he wants the pt. to work with the psychiatrist FOC stated he did not want the pt. to be seen by the PNP. CC to contact [facility] about potential family meeting. Date Signed: 09/11/2018 02:58 PM Electronically Signed By:Felicia Cornell
--- NOTE | 2018-09-11 16:03 | PDMN ---
Medical Necessity Medical necessity: Pt meets IP criteria as of 09/11/2018 per and [facility] B-[id number] (Bipolar Disorders, Adult, IP care) 4 days; presents on M1 hold for suicidal ideation.
--- NOTE | 2018-09-11 16:03 | ASMTCMCOM ---
CM Note CM Note Notes: CC tried to sign client of for [facility]; however, refused to sign [place]. Date Signed: 09/11/2018 04:02 PM Electronically Signed By:Denton Cuello
[2018-09-12] MEDS ORDERED: risperiDONE 1 MG TAB PO ONE (08:44)
[2018-09-12] MEDS ORDERED: risperiDONE 1 MG TAB PO SCH (09:00)
[2018-09-12] MEDS: LITHIUM CARBONATE 300 MG CAP PO SCH (09:27)
--- NOTE | 2018-09-12 13:00 | BAPA ---
[f rep st] ADMISSION PSYCHIATRIC ASSESSMENT DATE OF SERVICE: 09/12/2018 CHIEF COMPLAINT: "I haven't been working, been extremely anxious, I've gone now for about 2 weeks without sleeping, walking around, smoking cigarettes, called my brother to take me to the hospital because I felt detached from myself." Patient appears to be a poor historian with poor insight into his current condition. Patient has difficulty concentrating during interview and appears distracted, and is slow to respond to interview questions. Patient reports not sleeping well for several weeks prior to his admission. HISTORY OF PRESENT ILLNESS: From the ED note dated 09/10/2018, patient was brought to the emergency department by family. Patient has a history of bipolar disorder and was most recently admitted in April to [facility]. Patient reportedly has not been taking his lithium and risperidone as prescribed. Patient denies and states he has been taking his medication. Patient's lithium level at the time of admission was low, was not therapeutic, level was 0.4. Patient's brother and dad reported during the ER evaluation that patient had been pacing around his apartment for several weeks, not going to work, patient not bathing, not eating. Patient was recently kicked out of the apartment on Sunday. Patient reportedly told his brother that he was thinking about suicide and went to his roommate's room looking for a gun. Patient did find ammunition, but no gun. Patient was admitted on a 72- hour hold with start date and time of 09/10/2018 at 7 p.m. Patient was admitted involuntarily and is on an M1 hold due to being a danger to himself. Patient is also gravely disabled due to underlying mental illness and likely medication nonadherence. Patient is hospitalized for safety, crisis stabilization, and medication evaluation. Patient does agree with his brother and father's report of him being at home, not working for several months, and reports the last 2 weeks he has not slept, has been chain-smoking, reports he has been eating a little bit here and there. Patient also reports history of walking around [place] as he describes "aimlessly" for 10 to 12 hours per day. Patient reports history of other periods of time when he has gone several days without sleeping. Reportedly, patient's father and brother report that patient does well when on lithium and risperidone. Patient appears to be a poor historian with poor insight into his current condition. Patient has difficulty concentrating during interview and appears distracted, and is slow to respond to interview questions. Patient reports not sleeping well for several weeks prior to his admission. PAST PSYCHIATRIC HISTORY: Patient has a history of diagnosis of bipolar I disorder with mixed episode. Patient reports no history of suicide attempts. Patient was hospitalized at [address] 05/06/2016. Patient was most recently hospitalized at [facility] in April of 2018. Patient was stabilized at [address] 2 years ago with lithium. Patient's brother reports patient is "night and day different in behavior when on lithium, his mentation is clear, sharp, has had a job in the past, and has lived independently, and attended to activities of daily living appropriately." Shortly after discharge from [address], patient became nonadherence to medications. Reports he did not like the way lithium made him feel. Patient did not follow up and continue job. Patient has no history of violence. Patient's most recent home psychiatric medications include lithium carbonate 600 mg p.o. daily and 300 mg p.o. at bedtime and Risperdal 2 mg p.o. daily. ALLERGIES: No known allergies. CURRENT MEDICATIONS: 1. Tylenol 650 mg p.o. q.4 hours p.r.n. 2. Albuterol 2 puffs IH q.4 hours p.r.n. 3. [place] carbonate 300 mg p.o. daily. 4. [place] carbonate 600 mg p.o. at bedtime. 5. Ativan 1 mg p.o. q.6 hours p.r.n. 6. Maalox syrup 30 mL p.o. q.6 hours p.r.n. 7. Milk of magnesia 30 mL p.o. daily p.r.n. 8. Risperdal 1 mg p.o. daily. PAST MEDICAL HISTORY: Patient reports having shoulder surgery twice due to dislocations. Patient reported some minor concussions while playing football and lacrosse. Reported no ongoing medical or neurological conditions due to these concussions. Will continue to gather patient's medical and surgical history throughout the course of the patient's hospitalization. SOCIAL HISTORY: Patient is close to his family. Patient's family including father and brother are supportive. Patient's parents are together. Patient has a 30-year-old brother who resides in [place], [place]. Patient is not and has no children. Patient is currently unemployed. Patient does not provide his sexual history or orientation. Patient's highest level of education is a BA in Business Administration. 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 Patient's father reported patient has not been able to work for the past 4 years. Patient has no history of duty. Patient denied any legal issues. Patient reports he is spiritual, believes in God, and infinite intelligence in the universe. Patient reports leisure activities as movies, books, and travel. Patient reports no history of traumatic brain injury, loss of consciousness. Reports no history of learning delays or disorders. SUBSTANCE USE HISTORY: Patient does not provide substance use history. Substance use history from [facility] evaluation: [employer] retail assistant store manager obtained history from patient's brother. Patient's brother states he believes patient drinks alcohol and his father stated he believes that patient uses marijuana. Patient's U-tox was negative for all substances and blood alcohol was zero. Patient reports in previous records of smoking cigarettes at age 14. Patient did report chain- smoking cigarettes prior to this hospitalization. Previous records indicate patient started using marijuana when he was 16 or 17 and has used marijuana regularly in high school and beginning of college. Patient reports a history of trying powdered cocaine when he was 18 or 19. Reports he used cocaine 3 or 4 times, last used at age 23. Patient reports history of abusing Adderall, OxyContin. Patient reports using hallucinogens including mushrooms approximately 6 times from age 18. Patient reports starting using alcohol at ages 16 and 17. Reports he drank heavily in high school and college, but previous reports indicate patient stated he has not used alcohol since 2011. Will continue to gather patient's substance use history throughout the course of the patient's hospitalization. Patient currently unwilling to provide substance use history. Substance use history was taken from collateral the [employer] retail assistant store manager gathered from patient's brother, father, and previous records. FAMILY PSYCHIATRIC HISTORY: Patient denies family psychiatric history. Reports he believes, however, that there is depression on his mother's side of the family, is unable to provide specific details at this time. Will continue to gather family psychiatric history throughout the course of the patient's hospitalization. ADMISSION LABS AND STUDIES: 1. CBC within normal limits except white blood cells were elevated at 10.86 and absolute neutrophils were elevated at 7.8. 2. BMP within normal limits except sodium was low at 134. 3. Hemoglobin A1c within normal limits at 5.1. 4. Liver function within normal limits. 5. Lipid panel within normal limits except cholesterol was low at 120, LDL cholesterol calculated was low at 47, non-HDL cholesterol was low at 59, LDL/ HDL ratio was low at 0.77. 6. Toxicology screen negative for all the substances screened and negative for ethyl alcohol. 7. [place] 0.4. MENTAL STATUS EXAM: The patient is a well-nourished male looking stated chronological age. Attire is appropriate and dress is casual. Grooming status is appropriate. Ambulation is independent. Gait is normal and coordinated. Posture is normal and relaxed. Eye contact is appropriate and adequate. Motor activity is appropriate with purposeful, organized, coordinated movements. Attitude is fairly cooperative, however, at times, patient is guarded and defensive. Patient does appear to become agitated at times by this interviewer' s questions. Patient appears fairly attentive at times. Patient is distractible. Patient relates fairly well to this interviewer. Language production is spontaneous. Rate is fluent at times. Rate is hesitant. Latency of response at times is prolonged. Articulation is clear. Patient reports mood as "okay" with constricted and inappropriate affect. Patient's affect is also incongruent with patient's mood report. Patient's thought process is nonlinear and illogical with some loose associations noted. Patient' s thought process at times is tangential. Patient does not report suicidal or homicidal thoughts, ideas, or plans. Patient denies auditory or visual hallucinations. Patient denies delusions. Patient does not appear to be attending to internal stimuli. Patient is oriented to person, place, and time. Patient's attention and concentration are poor. Patient's insight and judgment are poor. No evidence of gross cognitive dysfunction at any point during the interview and no evidence of apparent dysfunction in recent or remote memory noted. Patient does not report undesirable side effects from current medications. DIAGNOSES: Based on the patient's history and current presentation, patient's diagnoses are: 1. Bipolar I disorder, most recent yamile. 2. Medical treatment nonadherence. FORMULATION: Patient is a 33-year-old male, single, unemployed, presents to the hospital involuntarily due to a risk to harm himself and patient is also gravely disabled due to underlying mental illness. Patient is currently on an M1 hold. Patient requires continued inpatient care because of recent crisis that led to this hospitalization. Patient presents with problems of not sleeping for 2 weeks. Patient reports he has been taking his medications as prescribed, however, based on patient's lithium level at time of admission, it is possible patient has not been taking his medications as prescribed. From reports from patient's family including father and brother, when patient is adherent to his medications including lithium and risperidone, patient does quite well. Patient has a past psychiatric history of bipolar I disorder and has a history of medication nonadherence. Patient's response to treatment based on patient's brother and father report is that patient responds well to treatment when taking medications as prescribed. Patient is a high safety risk due to current mood instability, recent yamile, recent suicidal ideation with plan to attempt by gun. Protective factors while hospitalized include ongoing safety checks, active involvement in treatment, and support from our treatment team. Patient could benefit from inpatient hospitalization for safety, crisis stabilization, and medication evaluation. PLAN: 1. Medications: After reviewing options, risks, and benefits with the patient , patient agrees to continue current medications listed above. No other medication changes at this time as more time is needed to determine ongoing tolerability and efficacy. Plan is to continue to observe patient for response and side effects from medications, and ongoing monitoring and evaluation. 2. Review with patient informed consent and recommendations for psychotropic medication treatment listed below 3. Labs: no additional labs at this time 4. Therapy: continue milieu and group therapy 5. Further investigation including gathering information from patients relatives and review of past case records to inform treatment plan. 6. Safety/Wellness plan and follow-up outpatient appointments to be established prior to discharge. Next steps are for patient to meet with healthcare management consultant to plan a safe discharge plan and establish outpatient services for ongoing treatment. 7. Confer with inpatient treatment team regarding treatment plan. 8. Address psychosocial stressors by meeting with geriatric personal care aide to establish discharge plan including referrals for outpatient services. 9. Legal status: M1 10. Consider discharge on next week if patient is in stable condition, safe, and has a safe discharge plan. ESTIMATED LENGTH OF STAY: 3-5 days PSYCHOTROPIC MEDICATION TREATMENT INFORMED CONSENT and RECOMMENDATIONS: Review nature of condition, diagnosis, and prognosis. Review nature and purpose of psychotropic medication treatment. Review type of psychotropic medications being ordered. Review risk and benefits of psychotropic medication treatment. Review probable length of time will need to take medications. Review risk and benefits of not undergoing psychotropic medication treatment. Review alternative treatments to psychotropic medications. Review psychotropic medications contraindications, drug-drug interactions, side effects, and importance of reporting any side effects to a psychiatric provider or nurse during inpatient hospitalization, and upon discharge to patients psychiatric outpatient provider, primary care provider, or other health livestock caretaker. Review importance of asking a nurse, psychiatric provider, or primary care provider any questions or problems concerning the psychotropic medications. Verify patient understands the information that has been provided, and understands, accepts, and agrees to psychotropic medications. Review patients safety plan and importance of patient to communicate to staff while hospitalized if patient is ever a danger to self/others, or unable to care for self, and upon discharge, the importance for patient to contact [facility] or [facility], or go to the nearest emergency room, if patient is ever a danger to self/others, or unable to care for self. Recommend that upon discharge patient establish medication management treatment with a psychiatric provider, establishes routine therapy appointments, and follow-up with primary care provider. Verify patient understands and agrees to these recommendations. /[id number]/MODL MTDD
[2018-09-12] MEDS: LITHIUM CARBONATE 600 MG CAP PO SCH (20:06)
[2018-09-13] MEDS: risperiDONE 1 MG TAB PO SCH (08:39)
[2018-09-13] MEDS: LITHIUM CARBONATE 300 MG CAP PO SCH (08:39)
--- NOTE | 2018-09-13 11:43 | SOAPPROG ---
SOAP Progress Note Assessment/Plan: Assessment: Unspecified Psychosis. R/O Bipolar Disorder with mood congruent psychotic features, R/O Schizoaffective Disorder, Bipolar Type. Nicotine Dependence. Improvement noted (see subjective/objective note). Patient is not safe to discharge at this time as patient continues to exhibit signs of psychosis ( notably delusions), and expresses psychosis symptoms (AH). Patient requires continued inpatient care because of current psychosis, and requires inpatient level of care to stabilize in order to no longer be gravely disabled due to mental illness. Patient expresses delusions and AH. Patient exhibits persistent inability to perform essential function due to psychotic condition. Patient is unable to test reality, poor insight into current condition, and poor judgement. Patient is withdrawn from social interactions. Patient refusing to allow case management to set-up outpatient appointments; not willing to sign ROIs. Patients support system has inability to manage functional impairment at lower level of care. Patient could benefit from continued inpatient hospitalization for crisis stabilization, safety, and medication evaluation. Plan: 1. Psychotropic medications: After reviewing options, risks, and benefits patient agrees to continue current medication, and agrees to increase Risperidone to 2 mg po QD. No other medication changes as more time is needed to determine ongoing tolerability and efficacy. Plan is to continue to observe patient for response and side effects from medications, and ongoing monitoring and evaluation. 2. Review with patient informed consent and recommendations for psychotropic medication treatment listed below 3. Labs: no additional labs at this time 4. Therapy: continue milieu and group therapy 5. Further investigation including gathering information from patients relatives and review of past case records to inform treatment plan. 6. Safety/Wellness plan and follow-up outpatient appointments to be established prior to discharge. Next steps are for patient to meet with child care cook to plan a safe discharge plan and establish outpatient services for ongoing treatment. 7. Confer with inpatient treatment team regarding treatment plan. 8. Psychosocial stressors addressed through disease case manager. 9. Legal status: M1; patient to be placed on STC 10. Consider discharge next week if patient is in stable condition, safe, and has a safe discharge plan. PSYCHOTROPIC MEDICATION TREATMENT INFORMED CONSENT and RECOMMENDATIONS: Review nature of condition, diagnosis, and prognosis. Review nature and purpose of psychotropic medication treatment. Review type of psychotropic medications being ordered. Review risk and benefits of psychotropic medication treatment. Review probable length of time patient will need to take medications. Review risk and benefits of not undergoing psychotropic medication treatment. Review alternative treatments to psychotropic medications. Review psychotropic medications contraindications, drug-drug interactions, side effects, and importance of reporting any side effects to a psychiatric provider or nurse during inpatient hospitalization, and upon discharge to patients psychiatric outpatient provider, primary care provider, or other health emergency care tech. Review importance of asking a nurse, psychiatric provider, or primary care provider any questions or problems concerning the psychotropic medications. Verify patient understands the information that has been provided, and understands, accepts, and agrees to psychotropic medications. Review patients safety plan and importance of patient to report to staff while hospitalized if patient is ever a danger to self/others, or unable to care for self, and upon discharge, the importance for patient to contact [facility] or [facility], or go to the nearest emergency room, if patient is ever a danger to self/others, or unable to care for self. Recommend that upon discharge patient establish medication management treatment with a psychiatric provider, establishes routine therapy appointments, and follow-up with primary care provider. Verify patient understands and agrees to these recommendations. 09/13/18 11:46 Subjective: Following up with patient for evaluation of psychosis and safety. Patient reports, "Not sure how I am doing. Feel like I am in a fog. Not myself. Patient reports he is concerned about "mind control issues and satanic impulses. " Patient reports recent satanic auditory hallucinations including voices telling him to "have sex with a cat." Patient reports current paranoia regarding him and his family being "threatened", patient being "abducted." Patient reports taking medications as prescribed, reports no side effects, and agrees to continue current medications. Patient agrees to increase Risperidone to 2 mg po QD. Patient does not agree to stay voluntary as recommended by this CHAIN MACHINE OPERATOR. Discuss short-term certification process with patient, and patient is aware he will be placed on a short-term certification. Objective: Vital Signs Temp Pulse Resp BP Pulse Ox 36.5 C 54 L 16 122/66 H 96 09/13/18 06:00 09/13/18 06:00 09/13/18 06:00 09/13/18 06:00 09/13/18 06:00 NURSING REPORT: Consulted with nursing for update on patients progress in treatment. Nurses report patient is engaged in treatment, is not attending groups, slept 6 hours, expresses the following psychiatric symptoms: delusions, exhibits the following psychiatric symptoms: delusional, withdrawn from social interactions; is eating all meals; is agreeable to medications, reports no side effects, and denies SI/HI, denies A/V hallucinations, and reports delusions. PATIENT TO BE PLACED ON SHORT-TERM CERTIFICATION. MSE: The patient is a well-nourished male looking stated chronological age. Attire is appropriate and dress is casual. Grooming status is appropriate. Ambulation is independent. Gait is normal and coordinated. Posture is normal and relaxed. Eye contact is appropriate. Motor activity is appropriate with purposeful, organized, coordinated movements; with no involuntary movements. Attitude is cooperative. Patient appears attentive and relates well to this interviewer. Language production is spontaneous. R/R/V normal. Articulation is clear. Patient reports mood as okay with congruent and appropriate affect. Patients thought process is non-linear and illogical. Patient denies suicidal thoughts, denies homicidal ideation. Patient denies auditory hallucinations, denies visual hallucinations. Patient reports delusions. Patient does not appear to be attending to internal stimuli. Patients attention and concentration are fair. Patient is oriented to person, place. Patients insight and judgment are poor. - Time Spent With Patient Time Spent With Patient: 30 minutes, met with patient individually. - Pending Discharge Pending Discharge Within 24 Hours: No Pending Discharge Within 48 Hours: No ICD10 Worksheet Patient Problems: Problems Problem Status Onset Bipolar 1 disorder Acute Bipolar I disorder with mood-congruent psychotic features Chronic Depression Acute Psychosis Acute
--- NOTE | 2018-09-13 12:39 | ASMTCMCOM ---
CM Note CM Note Notes: Pt. reports feeling "pretty good". Pt. reports sleeping "pretty well". Pt. reports getting enough to eat and not attending groups. Pt. reports taking his medications and "feel pretty normal". Pt. stated he already has a psychiatrist, but declined to allow CC to setup a follow up appointment. Pt. stated he is able to make outpatient's appointments on his own. Pt. reports being able to get to his appointments and is able to fill and take his medications. Pt. stated he may discharge today or in a day or so. Pt. reports his father will be able to pick him up upon discharge. Pt. denied SI, HI, AVH and paranoia. Pt. presents as alert, calm, guarded, dismissive at times, good eye contact, bit irritated and somewhat cooperative. Staff report pt. sleeping 9 hours and being medication compliant. CC unable to secure any follow up appointments at this time, due to pt. refusing to sign ROIs or provided prescriber information. Per [facility] provider, pt. will be placed on a STC and will potentially discharge the beginning of next week. Date Signed: 09/13/2018 12:39 PM Electronically Signed By:Felicia Cornell
[2018-09-13] MEDS: LITHIUM CARBONATE 600 MG CAP PO SCH (19:59)
[2018-09-13] MEDS ORDERED: MELATONIN 3 MG TAB PO PRN (21:05)
[2018-09-14] MEDS: LITHIUM CARBONATE 300 MG CAP PO SCH (08:20)
[2018-09-14] MEDS: risperiDONE 1 MG TAB PO SCH (08:20)
[2018-09-14] MEDS: LORazepam 0.5 MG TAB PO PRN ×2 (12:47→21:05)
--- NOTE | 2018-09-14 14:38 | ASMTCMCOM ---
CM Note CM Note Notes: Pt. reports feeling "calm...worried". Pt. stated he is concerned about his STC. Pt. reports sleeping "okay". Pt. stated he is getting enough to eat and attending groups. Pt. reports no issues with his current medications. Pt. stated he has "lot of idle time". Pt. denied SI, HI, AVH and paranoia. Pt. declined to allow CC to contact providers. Pt. stated he will call his providers himself and schedule a follow up appointment. Pt. presents as alert, calm, bit frustrated, good eye contact, groomed, lacking insight, and not fully cooperative. Staff report pt. sleeping 8.5 hours and being medication compliant. CC will ask pt. later in the day if he was able to schedule any appointments. Date Signed: 09/14/2018 02:38 PM Electronically Signed By:Felicia Cornell
--- NOTE | 2018-09-14 17:29 | SOAPPROG ---
SOAP Progress Note Assessment/Plan: Assessment: Per Sachin Carrion's note: Unspecified Psychosis. R/O Bipolar Disorder with mood congruent psychotic features, R/O Schizoaffective Disorder, Bipolar Type. Nicotine Dependence. Improvement noted (see subjective/objective note). Patient is not safe to discharge at this time as patient continues to exhibit signs of psychosis ( notably delusions), and expresses psychosis symptoms (AH). Patient requires continued inpatient care because of current psychosis, and requires inpatient level of care to stabilize in order to no longer be gravely disabled due to mental illness. Patient expresses delusions and AH. Patient exhibits persistent inability to perform essential function due to psychotic condition. Patient is unable to test reality, poor insight into current condition, and poor judgement. Patient is withdrawn from social interactions. Patient refusing to allow case management to set-up outpatient appointments; not willing to sign ROIs. Patients support system has inability to manage functional impairment at lower level of care. Patient could benefit from continued inpatient hospitalization for crisis stabilization, safety, and medication evaluation. Plan: 1. Psychotropic medications: After reviewing options, risks, and benefits patient agrees to continue current medication, and agrees to increase Risperidone to 2 mg po QD. No other medication changes as more time is needed to determine ongoing tolerability and efficacy. Plan is to continue to observe patient for response and side effects from medications, and ongoing monitoring and evaluation. WEEKEND PLAN: 09/14/18 17:24 1. Patient denies any SE's from recent dose titration of lithium and Risperidone. 2. Will schedule lithium level for 09/16/18. 3. Patient complains that he doesn't like to take psych meds, especially lithium. Given his h/o noncompliance and nonadherence to treatment, he is at high risk of not continuing with treatment after he discharges. MD recommends plan with family prior to d/c to increase likelihood of compliance. Will family monitor patient? Recommend outpatient program like [facility] or [facility] where his meds can be supervised? 4. [facility] has suggested patient start residential program such as [facility], but patient has so far refused. MD would support residential treatment for continued stabilization. 5. [facility] Subjective: Patient says his "brain feels like pudding" on lithium. He says he doesn't like taking psych meds, especially lithium. He is still very delusional. He told RN this AM, "I'm just a body, there's not even a consciousness in my brain." He has little insight into the nature or severity of his condition as demonstrated by his noncompliance with treatment and resistance to taking meds. recommends residential or intensive outpatient programs such as [facility] [place] after discharge, but so far, patient has refused these options. Objective: Vital Signs Temp Pulse Resp BP Pulse Ox 36.6 C 83 18 146/64 H 98 09/14/18 06:00 09/14/18 06:00 09/14/18 06:00 09/14/18 06:00 09/14/18 06:00 MSE: Affect: Euthymic Mood: "OK" TP: Goal-directed at times, loose and tangential at other times TC: Denies any SI/HI Insight/Judgment: Poor - Time Spent With Patient Time Spent With Patient: 20" - Pending Discharge Pending Discharge Within 24 Hours: No Pending Discharge Within 48 Hours: No ICD10 Worksheet Patient Problems: Problems Problem Status Onset Bipolar 1 disorder Acute Bipolar I disorder with mood-congruent psychotic features Chronic Depression Acute Psychosis Acute
[2018-09-14] MEDS: LITHIUM CARBONATE 600 MG CAP PO SCH (21:06)
[2018-09-15] MEDS: LITHIUM CARBONATE 300 MG CAP PO SCH (08:29)
[2018-09-15] MEDS: risperiDONE 1 MG TAB PO SCH (08:29)
[2018-09-15] MEDS: LORazepam 0.5 MG TAB PO PRN ×3 (13:36→20:24)
--- NOTE | 2018-09-15 15:37 | ASMTBHDC ---
Notes Note: Notes: This medical underwriter requested an LYNDON for P to send a referral for outpatient services; the patient declined. He reported that he is considering following up with [facility] and would like to continue discussion with his family members when they visit later today. The patient indicated that he may be interested in [facility] services and will notify staff when he decides. The patient's presentation is no longer reporting "being a body without organs and lacking consciousness;" he appears increasingly grounded in reality however suspicious about follow up services. Date Signed: 09/15/2018 03:37 PM Electronically Signed By:Joanne Simon
--- NOTE | 2018-09-15 18:19 | SOAPPROG ---
SOAP Progress Note Assessment/Plan: Assessment: Per Sachin Carrion's note: Unspecified Psychosis. R/O Bipolar Disorder with mood congruent psychotic features, R/O Schizoaffective Disorder, Bipolar Type. Nicotine Dependence. Improvement noted (see subjective/objective note). Patient is not safe to discharge at this time as patient continues to exhibit signs of psychosis ( notably delusions), and expresses psychosis symptoms (AH). Patient requires continued inpatient care because of current psychosis, and requires inpatient level of care to stabilize in order to no longer be gravely disabled due to mental illness. Patient expresses delusions and AH. Patient exhibits persistent inability to perform essential function due to psychotic condition. Patient is unable to test reality, poor insight into current condition, and poor judgement. Patient is withdrawn from social interactions. Patient refusing to allow case management to set-up outpatient appointments; not willing to sign ROIs. Patients support system has inability to manage functional impairment at lower level of care. Patient could benefit from continued inpatient hospitalization for crisis stabilization, safety, and medication evaluation. Plan: 1. Psychotropic medications: After reviewing options, risks, and benefits patient agrees to continue current medication, and agrees to increase Risperidone to 2 mg po QD. No other medication changes as more time is needed to determine ongoing tolerability and efficacy. Plan is to continue to observe patient for response and side effects from medications, and ongoing monitoring and evaluation. WEEKEND PLAN: 09/14/18 17:24 1. Patient denies any SE's from recent dose titration of lithium and Risperidone. 2. Will schedule lithium level for 09/16/18. 3. Patient complains that he doesn't like to take psych meds, especially lithium. Given his h/o noncompliance and nonadherence to treatment, he is at high risk of not continuing with treatment after he discharges. MD recommends plan with family prior to d/c to increase likelihood of compliance. Will family monitor patient? Recommend outpatient program like [facility] or [facility] where his meds can be supervised? 4. [facility] has suggested patient start residential program such as [facility], but patient has so far refused. MD would support residential treatment for continued stabilization. 5. [facility] 09/15/18 18:11 1. MD and RN spoke for long time with patient's FOC. MD answered [facility]'s questions about medications and about long-term treatment options. MD recommended step down, such as residential program, IOP or day treatment, after discharge. [facility] states he already tried to convince patient to participate in program through [facility], but patient refused. FOC is going to contact [facility] again. If patient refuses these options, CC will refer to [facility]. [facility] has called several psychiatrists in [facility], but none are taking new patients. [facility] says he will look into [facility] services if patient refuses more intensive programs. FOC said he was "grateful" to have better understanding of his son's condition and recommendations for transitional services after he left hospital. emphasized the most important thing was to get patient connected with providers he could learn to trust and who can monitor him over time to insure the most effective treatment and catch problems before they turn into crises and require hospitalization. FOC agreed he would like to see his son get "back to normal" and be able to "hold job" and work full-time. 2. [place] level 0.5 3. Patient seems slightly improved. He is less delusional, more reality-based in his conversation. He isn't talking about "consciousness" or unusual bodily sensations today. 4. Recommend f/u with [facility], [facility] or [facility] depending on FOC's and patient's preferences. 5. [facility] Subjective: MD and RN spoke for long time with patient's FOC. MD answered [facility]'s questions about medications and about long-term treatment options. MD recommended step down, such as residential program, IOP or day treatment, after discharge. [facility] states he already tried to convince patient to participate in program through [facility], but patient refused. [facility] is going to contact [facility] again. If patient refuses these options, CC will refer to [facility]. [facility] has called several psychiatrists in [facility], but none are taking new patients. [facility] says he will look into [facility] services if patient refuses more intensive programs. FOC said he was "grateful" to have better understanding of his son's condition and recommendations for transitional services after he left hospital. emphasized the most important thing was to get patient connected with providers he could learn to trust and who can monitor him over time to insure the most effective treatment and catch problems before they turn into crises and require hospitalization. OLVIN agreed he would like to see his son get "back to normal" and be able to "hold job" and work full-time. Objective: Vital Signs Temp Pulse Resp BP Pulse Ox 36.6 C 72 16 125/72 H 96 09/15/18 06:00 09/15/18 06:00 09/15/18 06:00 09/15/18 06:00 09/15/18 06:00 MSE: Affect: Elevated Mood: "I feel great" TP: More organized and goal- directed TC: Denies any SI/HI, less delusional Insight/Judgment: Poor - Time Spent With Patient Time Spent With Patient: 15" with patient, 45" with FOC and doing psychoeducation - Pending Discharge Pending Discharge Within 24 Hours: No Pending Discharge Within 48 Hours: No ICD10 Worksheet Patient Problems: Problems Problem Status Onset Bipolar 1 disorder Acute Bipolar I disorder with mood-congruent psychotic features Chronic Depression Acute Psychosis Acute
[2018-09-15] MEDS: LITHIUM CARBONATE 600 MG CAP PO SCH (20:23)
[2018-09-15] MEDS: NICOTINE POLACRILEX 2 MG GUM B PRN (20:43)
[2018-09-16] MEDS ORDERED: LITHIUM CARBONATE 300 MG CAP PO SCH (05:51)
[2018-09-16] MEDS: NICOTINE POLACRILEX 2 MG GUM B PRN ×3 (07:34→20:55)
[2018-09-16] MEDS: risperiDONE 1 MG TAB PO SCH (08:20)
[2018-09-16] MEDS: LITHIUM CARBONATE 300 MG CAP PO SCH (08:20)
--- NOTE | 2018-09-16 09:04 | SOAPPROG ---
SOAP Progress Note Assessment/Plan: Assessment: Schizoaffective Disorder, Bipolar Type. Nicotine Dependence. Slight improvement noted (see subjective/objective note). Patient no longer reporting AH, continues to report delusions and no insight. Patient is not safe to discharge at this time as continued delusions. Patient requires continued inpatient care because of current psychosis, and requires inpatient level of care to stabilize in order to no longer be gravely disabled due to mental illness. Patient exhibits persistent inability to perform essential function due to psychotic condition. Patient is unable to test reality, poor insight into current condition, and poor judgement. Patient is withdrawn from social interactions. Patient refusing to allow case management to set-up outpatient appointments; not willing to sign ROIs. Patients support system has inability to manage functional impairment at lower level of care. Patient could benefit from supportive environment ([facility]) after discharge and ongoing treatment ( [facility]). Patient could benefit from continued inpatient hospitalization for crisis stabilization, safety, and medication evaluation. Plan: 1. Psychotropic medications: After reviewing options, risks, and benefits patient agrees to continue current medication. No other medication changes as more time is needed to determine ongoing tolerability and efficacy. Plan is to continue to observe patient for response and side effects from medications, and ongoing monitoring and evaluation. 2. Review with patient informed consent and recommendations for psychotropic medication treatment listed below 3. Labs: no additional labs at this time 4. Therapy: continue milieu and group therapy 5. Further investigation including gathering information from patients relatives and review of past case records to inform treatment plan. 6. Safety/Wellness plan and follow-up outpatient appointments to be established prior to discharge. Next steps are for patient to meet with manager medicare marketing to plan a safe discharge plan and establish outpatient services for ongoing treatment. 7. Confer with inpatient treatment team regarding treatment plan. 8. Psychosocial stressors addressed through window caser. 9. Legal status: [facility] 10. Consider discharge this week if patient is in stable condition, safe, and has a safe discharge plan. PSYCHOTROPIC MEDICATION TREATMENT INFORMED CONSENT and RECOMMENDATIONS: Review nature of condition, diagnosis, and prognosis. Review nature and purpose of psychotropic medication treatment. Review type of psychotropic medications being ordered. Review risk and benefits of psychotropic medication treatment. Review probable length of time patient will need to take medications. Review risk and benefits of not undergoing psychotropic medication treatment. Review alternative treatments to psychotropic medications. Review psychotropic medications contraindications, drug-drug interactions, side effects, and importance of reporting any side effects to a psychiatric provider or nurse during inpatient hospitalization, and upon discharge to patients psychiatric outpatient provider, primary care provider, or other health student career development specialist. Review importance of asking a nurse, psychiatric provider, or primary care provider any questions or problems concerning the psychotropic medications. Verify patient understands the information that has been provided, and understands, accepts, and agrees to psychotropic medications. Review patients safety plan and importance of patient to report to staff while hospitalized if patient is ever a danger to self/others, or unable to care for self, and upon discharge, the importance for patient to contact [facility] or [facility], or go to the nearest emergency room, if patient is ever a danger to self/others, or unable to care for self. Recommend that upon discharge patient establish medication management treatment with a psychiatric provider, establishes routine therapy appointments, and follow-up with primary care provider. Verify patient understands and agrees to these recommendations. 09/16/18 09:06 Subjective: Following up with patient for evaluation of psychosis and safety. Patient reports, "Doing better. I will follow-up at [facility] after leaving. Just need a few psychiatric touch-points every so often, and get moved in to my apartment in [place]." Patient reports taking medications as prescribed, reports no side effects, and agrees to continue current medications. Patient agrees to continue current medications after discharge, and follow-up with P for ongoing medication management. Objective: Vital Signs Temp Pulse Resp BP Pulse Ox 36.9 C 62 14 130/64 H 97 09/16/18 06:00 09/16/18 06:00 09/16/18 06:00 09/16/18 06:00 09/16/18 06:00 NURSING REPORT: Consulted with nursing for update on patients progress in treatment. Nurses report patient is engaged in treatment, is attending some groups, slept 6 hours, expresses the following psychiatric symptoms: delusions, exhibits the following psychiatric symptoms: delusional; is eating all meals; is agreeable to medications, reports no side effects, and denies SI/HI, denies A /V hallucinations, and reports delusions. MD REPORT FROM WEEKEND: Slightly better on Sunday, but still delusional and no insight. [place] level on Sunday 0.5. MSE: The patient is a well-nourished male looking stated chronological age. Attire is appropriate and dress is casual. Grooming status is appropriate. Ambulation is independent. Gait is normal and coordinated. Posture is normal and relaxed. Eye contact is appropriate. Motor activity is appropriate with purposeful, organized, coordinated movements; with no involuntary movements. Attitude is cooperative. Patient appears attentive and relates well to this interviewer. Language production is spontaneous. R/R/V normal. Articulation is clear. Patient reports mood as okay with congruent and appropriate affect. Patients thought process is non-linear and illogical. Patient denies suicidal thoughts, denies homicidal ideation. Patient denies auditory, visual hallucinations. Patient reports delusions. Patient does not appear to be attending to internal stimuli. Patients attention and concentration are fair. Patient is oriented to person, place. Patients insight and judgment are poor. - Time Spent With Patient Time Spent With Patient: 15 minutes, met with patient individually. - Pending Discharge Pending Discharge Within 24 Hours: No Pending Discharge Within 48 Hours: No ICD10 Worksheet Patient Problems: Problems Problem Status Onset Bipolar 1 disorder Acute Bipolar I disorder with mood-congruent psychotic features Chronic Depression Acute Psychosis Acute
[2018-09-16] MEDS: LORazepam 0.5 MG TAB PO PRN ×2 (13:36→20:37)
[2018-09-16] MEDS: LITHIUM CARBONATE 600 MG CAP PO SCH (20:37)
[2018-09-17 06:50] VITALS: BP 116/63
--- NOTE | 2018-09-17 07:43 | SOAPPROG ---
SOAP Progress Note Assessment/Plan: Assessment: Schizoaffective Disorder, Bipolar Type. Nicotine Dependence. Improvement noted (see subjective/objective note). Patient no longer reporting AH, improved insight, continues to report delusions. Patient could benefit from continued inpatient hospitalization for crisis stabilization, safety, and medication evaluation. Family meeting today with patient's father to assess readiness to discharge and review discharge plan. Plan: 1. Psychotropic medications: After reviewing options, risks, and benefits patient agrees to continue current medication. No other medication changes as more time is needed to determine ongoing tolerability and efficacy. Plan is to continue to observe patient for response and side effects from medications, and ongoing monitoring and evaluation. 2. Review with patient informed consent and recommendations for psychotropic medication treatment listed below 3. Labs: no additional labs at this time 4. Therapy: continue milieu and group therapy 5. Further investigation including gathering information from patients relatives and review of past case records to inform treatment plan. 6. Safety/Wellness plan and follow-up outpatient appointments to be established prior to discharge. Next steps are for patient to meet with caregiver assisted living to plan a safe discharge plan and establish outpatient services for ongoing treatment. 7. Confer with inpatient treatment team regarding treatment plan. 8. Psychosocial stressors addressed through briefcase sewer. 9. Legal status: [facility] 10. Consider discharge this week if patient is in stable condition, safe, and has a safe discharge plan. PSYCHOTROPIC MEDICATION TREATMENT INFORMED CONSENT and RECOMMENDATIONS: Review nature of condition, diagnosis, and prognosis. Review nature and purpose of psychotropic medication treatment. Review type of psychotropic medications being ordered. Review risk and benefits of psychotropic medication treatment. Review probable length of time patient will need to take medications. Review risk and benefits of not undergoing psychotropic medication treatment. Review alternative treatments to psychotropic medications. Review psychotropic medications contraindications, drug-drug interactions, side effects, and importance of reporting any side effects to a psychiatric provider or nurse during inpatient hospitalization, and upon discharge to patients psychiatric outpatient provider, primary care provider, or other health home care companion. Review importance of asking a nurse, psychiatric provider, or primary care provider any questions or problems concerning the psychotropic medications. Verify patient understands the information that has been provided, and understands, accepts, and agrees to psychotropic medications. Review patients safety plan and importance of patient to report to staff while hospitalized if patient is ever a danger to self/others, or unable to care for self, and upon discharge, the importance for patient to contact [facility] or 911, or go to the nearest emergency room, if patient is ever a danger to self/others, or unable to care for self. Recommend that upon discharge patient establish medication management treatment with a psychiatric provider, establishes routine therapy appointments, and follow-up with primary care provider. Verify patient understands and agrees to these recommendations. 09/17/18 07:43 Subjective: Following up with patient for evaluation of psychosis and safety. Patient reports, "Doing good. Feeling better than when I came in here. Was a little spaced out then, and feeling more grounded now." Patient reports taking medications as prescribed, reports no side effects, and agrees to continue current medications. Patient agrees to continue current medications after discharge, and follow-up with [facility] for ongoing medication management. Patient agrees to meet with this CHIEF DEPUTY and his father today for family meeting at 1100. Objective: Vital Signs Temp Pulse Resp BP Pulse Ox 36.6 C 63 16 116/63 97 09/17/18 06:00 09/17/18 06:00 09/17/18 06:00 09/17/18 06:00 09/17/18 06:00 NURSING REPORT: Consulted with nursing for update on patients progress in treatment. Nurses report patient is engaged in treatment, is attending some groups, slept 8 hours, expresses the following psychiatric symptoms: delusions, exhibits the following psychiatric symptoms: delusional; is eating all meals; is agreeable to medications, reports no side effects, and denies SI/HI, denies A /V hallucinations, and reports delusions. CALL WITH PATENTS FATHER: This CHIEF DEPUTY calls patients father to provide treatment update and review discharge plans. Patients father responds well to update. Patients father thanks this CHIEF DEPUTY for call, and agrees to family meeting with patient and this CHIEF DEPUTY today at 1100. He is supportive of patients treatment, and has established living arrangements for patient after discharge. Today during family meeting, will assess readiness to discharge and review discharge plan. MD REPORT FROM WEEKEND: Slightly better on Sunday, but still delusional and no insight. [place] level on Sunday 0.5. MSE: The patient is a well-nourished male looking stated chronological age. Attire is appropriate and dress is casual. Grooming status is appropriate. Ambulation is independent. Gait is normal and coordinated. Posture is normal and relaxed. Eye contact is appropriate. Motor activity is appropriate with purposeful, organized, coordinated movements; with no involuntary movements. Attitude is cooperative. Patient appears attentive and relates well to this interviewer. Language production is spontaneous. R/R/V normal. Articulation is clear. Patient reports mood as okay with congruent and appropriate affect. Patients thought process is linear and fairly logical. Patient denies suicidal thoughts, denies homicidal ideation. Patient denies auditory, visual hallucinations. Patient reports delusions. Patient does not appear to be attending to internal stimuli. Patients attention and concentration are fair. Patient is oriented to person, place. Patients insight and judgment are poor. - Time Spent With Patient Time Spent With Patient: 15 minutes, met with patient individually. - Pending Discharge Pending Discharge Within 24 Hours: No Pending Discharge Within 48 Hours: No ICD10 Worksheet Patient Problems: Problems Problem Status Onset Bipolar 1 disorder Acute Bipolar I disorder with mood-congruent psychotic features Chronic Depression Acute Psychosis Acute
[2018-09-17] MEDS: LITHIUM CARBONATE 300 MG CAP PO SCH (08:11)
[2018-09-17] MEDS: risperiDONE 1 MG TAB PO SCH (08:11)
--- NOTE | 2018-09-17 12:18 | BDS ---
[f rep st] BEHAVIORAL HEALTH DISCHARGE SUMMARY REASON FOR ADMISSION: From the ED note dated 09/10/2018, patient was brought to the emergency department by family. The patient's family reported the patient has been nonadherent with lithium and risperidone. Patient's brother and Dad reported the patient has been pacing around his apartment for several weeks and not going to work, not bathing, and not eating. The patient told his brother he was thinking about suicide and went to his roommate's room looking for a gun. The patient was admitted involuntarily and on an M1 hold for being a danger to himself and for being gravely disabled. The patient was admitted for safety, crisis stabilization, and medication management. ADMITTING DIAGNOSES: 1. Bipolar 1 disorder, most recent yamile. 2. Medical treatment nonadherence. ADMISSION PHYSICAL EXAM: Patient was seen on 09/11/2018 for history and physical consultation for medical clearance for inpatient psychiatric hospitalization and treatment. The patient was medically cleared for inpatient psychiatric hospitalization and treatment. For further details, please refer to fitness consultant note document dated 09/11/2018. ADMISSION LABS: 1. CBC within normal limits except white blood cells were elevated at 10.86, absolute neutrophils elevated at 7.8. 2. Chemistry: BMP within normal limits except sodium was low at 134. 3. Hemoglobin A1c within normal limits at 5.1. 4. Liver function within normal limits. 5. Lipid panel within normal limits except cholesterol was low at 120, LDL cholesterol calculated was low at 47, non-HDL cholesterol was low at 59, LDL/ HDL ratio was low at 0.77. 6. Toxicology screen negative for all the substances that were screened and negative for ethyl alcohol. 7. Sunman level at time of admission on 09/10/2018 was 0.4. Sunman level on 09/15/2018 was 0.5. Sunman level at 0.5 is from current dose of lithium after 3 full days. MAJOR PROCEDURES OR TESTS: None. HOSPITAL COURSE: The most prominent symptoms and behaviors while the patient was here were disorganized thought process. The patient reported delusions, some thought blocking noted. Treatment modalities utilized were milieu and group therapy. Sunman 300 mg p.o. daily and 600 mg p.o. at bedtime was started to target mood symptoms, was tolerated with no report of side effects and with good response. Risperidone was titrated to 2 mg p.o. daily to target psychosis symptoms, was tolerated with no report of side effects and with good response. Patient has improved considerably with no signs of psychiatric symptoms and no psychiatric symptoms expressed. Patient reports he has improved since admission, states to be in stable condition, feels safe to discharge, and he contracts for safety. Patients response to treatment was good. There were no adverse or unexpected results of treatment. The patient was safe throughout stay, active in treatment, engaged in groups, and was appropriate with staff. Patient met with treatment team prior to discharge to assess readiness to discharge and review discharge plan. The treatment team consensus is the patient in stable condition, has a safe discharge plan, and is ready to discharge today. CONDITION AT DISCHARGE: Patient is in stable condition and is no longer a danger to self or others, and is not gravely disabled due to mental illness. Patient is no longer in need of inpatient level of care, and can be safely and effectively treated within the community. The patients level of risk at time of discharge is low. MSE: The patient is casually dressed and with good hygiene , and looks stated age. Patient is sitting, posture is upright, and position is relaxed. Patient appears awake, alert, and responds appropriately and reasonably during interview. Patient is engaged, relates well to interviewer, and emotional facial expression is appropriate to situation and changes appropriately with topic. Patient is cooperative, makes comfortable eye contact , and movements are voluntary, deliberate, coordinated, and smooth and even with no inappropriate movements. Patient makes laryngeal sounds effortlessly and shares conversation appropriately; pace of conversation is appropriate, and stream of talking is fluent; articulation is clear and understandable; word choice is effortless and appropriate for education level; completes sentences, occasionally pausing to think; rate and volume are appropriate for interview and setting. Patient reports mood as euthymic. Patients affect is stable with full variable range, congruent with mood, and appropriate to speech and circumstances. Patient has linear and logical thinking, with no loose associations, tangential thought, thought blocking, concrete thinking, or any other signs of formal thought disorder. Patient denies suicidal and homicidal ideation, and denies hallucinations and delusions. Patient appears to be a reliable historian with sound judgement and good insight into current condition. Patient has no apparent dysfunction in recent or remote memory noted , and no evidence of gross cognitive dysfunction noted at any point during the interview. DISCHARGE DIAGNOSIS: Schizoaffective disorder, bipolar type. CURRENT MEDICATIONS: After reviewing options, risks, and benefits with the patient, the patient agrees to continue: 1. Sunman 300 mg p.o. daily and 600 mg p.o. at bedtime. 2. Risperidone 2 mg p.o. daily. The patient requests prescriptions for these medications at time of discharge. Prescriptions for 30 days are provided. Prescriptions are reviewed with the patient at time of discharge to ensure accuracy and patient understanding. DISPOSITION: Patient left hospital independently and voluntarily with his dad and plans to go to his apartment in [place] with his dad after discharge. FOLLOWUP: service coordinator elderly facility reports the appropriate outpatient follow-up services have been established and outpatient appointments have been scheduled. The patient received written instructions with times and dates of outpatient follow-up appointments. The following follow-up recommendations were provided to the patient at discharge: Continue psychotropic medications as prescribed and attend appointments as scheduled. Report any side effects to a psychiatric outpatient provider, a primary care provider, or other health managed care director. Address any questions or problems concerning the psychotropic medications with a psychiatric outpatient provider, a primary care provider, or other health managed care director. Contact [facility] or [facility], or go to the nearest emergency room, if you are ever a danger to yourself/others, or unable to care for yourself. As soon as possible, establish a routine medication management treatment with a psychiatric provider, establish routine therapy appointments, and follow-up with a primary care provider. LEGAL COURSE: The patient was admitted on an M1 hold for involuntary inpatient psychiatric hospitalization and treatment. The patient was then placed on a short-term certification for extended hospital stay. The patient discharged today independently and voluntarily, and short-term certification was terminated at time of discharge. ATTITUDE AT TIME OF DISCHARGE: The patients attitude was positive at time of discharge, and patient reports looking forward to discharging today. The patient reports he feels safe to discharge, is no longer a danger to himself or others, is in stable condition, and contracts for safety. Patient states he will continue medications as prescribed, and establish medication management treatment with an outpatient provider after discharge. Patient reports he understands the information that has been provided to him, and he understands, accepts, and agrees to psychotropic medications. Patient describes internal protective factors as the coping skills he has learned while hospitalized here, and he plans to continue to practice these coping skills after discharge. FAMILY MEETING: This FOOT PRESS OPERATOR met with patient and patient's father, at patient's request, at time of discharge to assess readiness to discharge and review discharge plan. Patient's father reports patient is safe to discharge and has a safe discharge plan. Patient's father thanks this FOOT PRESS OPERATOR for treating his son and states, "I appreciate all that you have done here. Thank you." LABS AND RADIOLOGY STUDIES: There were no pending labs or studies at time of discharge. ADVANCE DIRECTIVES: There were no advance directives on file, and patient was full code during this hospitalization. The following psychotropic medication treatment informed consent and recommendations were provided to the patient at time of discharge. Patient reports he understands, accepts, and agrees to the information that has been provided. PSYCHOTROPIC MEDICATION TREATMENT INFORMED CONSENT and RECOMMENDATIONS: Review nature of condition, diagnosis, and prognosis. Review nature and purpose of psychotropic medication treatment. Review type of psychotropic medications being prescribed. Review risk and benefits of psychotropic medication treatment. Review probable length of time will need to take medications. Review risk and benefits of not undergoing psychotropic medication treatment. Review alternative treatments to psychotropic medications. Review psychotropic medications contraindications, side effects, and importance of reporting any side effects to a psychiatric provider, primary care provider, or other health managed care director. Review importance of asking a psychiatric provider or primary care provider any questions or problems concerning the psychotropic medications. Review safety plan and the importance to contact [facility] or [facility] , or go to the nearest emergency room, if ever a danger to yourself/others, or unable to care for yourself. Recommend upon discharge to establish routine medication management treatment with a psychiatric provider, establish routine therapy appointments, and follow-up with a primary care provider. Verify patient understands, accepts, and agrees to the information that has been provided. /[id number]
== END 2018-09-17 11:35 | disposition home or self-care (01) | DRG 885 ==
LOC: EEVIPCON 15:39 → BBEH 09-11 12:15
PROVIDERS: ADMIT Registered Nurse; ATTEND Registered Nurse
DX: F25.0 Schizoaffective disorder, bipolar type (principal); F17.210 Nicotine dependence, cigarettes, uncomplicated
CPT/HCPCS: 80305; G0480